=== PATIENT | male | born 1945 ===

== ENCOUNTER 2024-05-30 18:05 | Emergency (ER) | payer OTHER ==
[2024-05-30 19:07] VITALS: BP 121/63; PULSE 55; RESP 16; O2SAT 95
== END 2024-05-30 20:04 | disposition home or self-care (01) ==
LOC: EMS 18:05 → EDBD 18:05 → EMS 20:04
DX: F03.90 Unspecified dementia, unspecified severity, without behavioral disturbance, psychotic disturbance, mood disturbance, and anxiety (principal)
CPT/HCPCS: 99285; Z7502

== ENCOUNTER 2024-10-06 11:32 | Emergency (ER) | payer OTHER ==
[~2024-10-06] VITALS: Ht 167.6 cm; Wt 67.8 kg
[2024-10-06 11:52] VITALS: TEMP 98.1
[2024-10-06 13:31] VITALS: BP 120/70; PULSE 55; RESP 18; O2SAT 95
== END 2024-10-06 13:32 | disposition home or self-care (01) ==
LOC: EMS 11:32
DX: S61.402A Unspecified open wound of left hand, initial encounter (principal); I10 Essential (primary) hypertension; E78.00 Pure hypercholesterolemia, unspecified; E78.5 Hyperlipidemia, unspecified; F03.90 Unspecified dementia, unspecified severity, without behavioral disturbance, psychotic disturbance, mood disturbance, and anxiety; W10.9XXA Fall (on) (from) unspecified stairs and steps, initial encounter; Y93.89 Activity, other specified; Y92.89 Other specified places as the place of occurrence of the external cause; Y99.8 Other external cause status
CPT/HCPCS: 93005; 99283